=== PATIENT | female | born 1935 | race Caucasian/White ===

== ENCOUNTER → 2016-12-08 | Outpatient (CLI) | payer MEDICARE, BC ==
--- NOTE | 2016-12-08 16:50 | PCVCIMAG ---
EXAM: BILATERAL LOWER EXTREMITY ARTERIAL DUPLEX INDICATION: Peripheral Arterial Disease. Leg pain. FINDINGS: Right Leg: Satisfactory arterial waveforms in the common femoral and profunda femoral artery and in the superficial femoral artery and popliteal artery. The anterior tibial and peroneal arteries are patent. 70% stenosis mid posterior tibial artery. Left Leg: Satisfactory arterial waveforms in the common femoral and profunda femoral artery and in the superficial femoral artery and popliteal artery. The anterior tibial and peroneal arteries are patent. Complete occlusion mid/distal posterior tibial artery. IMPRESSION: 70% stenosis mid right posterior tibial artery. Complete occlusion mid/distal left posterior tibial artery. No superficial femoral or popliteal artery stenosis bilaterally. LOC:[id number]
== END | disposition home or self-care (01) ==
LOC: PCVCIMAG 14:55
PROVIDERS: ATTEND Internal Medicine Cardiovascular Disease
DX: I70.201 Unspecified atherosclerosis of native arteries of extremities, right leg (principal); I74.8 Embolism and thrombosis of other arteries
CPT/HCPCS: 93925